=== PATIENT | male | born 1995 | race Two or more races ===

== ENCOUNTER 2016-08-18 16:29 | Emergency (ER) | payer OTHER ==
[2016-08-18 16:35] VITALS: PULSE 79; TEMP 98.1; O2SAT 97
--- NOTE | 2016-08-18 16:45 | EDPHY ---
H & P Stated Complaint: "I have a cold" Sore throat since yesterday;no cough or fever - Personal History Current Tetanus Diphtheria and Acellular Pertussis (TDAP): Unsure - Medical/Surgical History Other PMH: healthy - Social History Smoking Status: Never smoked Time Seen by Provider: 08/18/16 16:40 HPI/ROS: CHIEF COMPLAINT: " IHave a cold" HISTORY OF PRESENT ILLNESS: 20-year-old immunocompetent male complaining of 2 days of nonproductive cough, sore throat, rhinorrhea "I have a cold". Denies: Chest pain, dyspnea, change in voice, rash, abdominal pain, nausea, vomiting PRIMARY CARE PROVIDER:[facility] REVIEW OF SYSTEMS: A ten point review of systems was performed and is negative with the exception of the items mentioned in the HPI PAST MEDICAL & SURGICAL HISTORY: No pertinent medical or surgical history SOCIAL HISTORY: Positive smoker . Student PHYSICAL EXAM (Prior to examination, patient consented to physical exam, hands were washed and my usual and customary physical exam procedures followed) 1) GENERAL: Well-developed, well-nourished, alert and oriented. Appears to be in no acute distress. 2) HEAD: Normocephalic, atraumatic 3) HEENT: Pupils equal, round, reactive to light bilaterally. Sclera anicteric. Nasopharynx, oropharynx, clear, no lesions. No tonsillar enlargement or tonsillar exudate. No trismus no drooling. Ears bilaterally with normal tympanic membranes. 4) NECK: Full range of motion, no meningeal signs. No adenopathy 5) LUNGS: Clear auscultation bilaterally, no wheezes, no rhonchi, no retractions. 6) HEART: Regular rate and rhythm, no murmur, no heave, no gallop. 7) ABDOMEN: No guarding, no rebound, no focal tenderness,, 8) MUSCULOSKELETAL: No peripheral edema or discoloration. 9) BACK: No CVA tenderness. 10) SKIN: No rash, no petechiae. 11) Psychiatric: Patient is oriented X 3, there is no agitation. DIFFERENTIAL DIAGNOSIS: in no particular include but limited to pneumonia, meningitis, bronchitis, viral URI (Niecy,Ekta Hayley) Constitutional: Initial Vital Signs Temperature (C) 36.7 C 08/18/16 16:33 Heart Rate 79 08/18/16 16:33 Respiratory Rate 16 08/18/16 16:33 Blood Pressure 116/64 08/18/16 16:33 O2 Sat (%) 97 08/18/16 16:33 O2 Delivery Mode Room Air Allergies/Adverse Reactions: No Known Allergies Allergy (Unverified 08/18/16 16:33) Home Medications: Medication Instructions Recorded Albuterol [Proventil Inhaler HFA 1 - 2 puffs IH Q4PRN PRN #1 mdi 08/18/16 (*)] Benzonatate [Tessalon Pearles (RX)] 200 mg PO TID PRN #15 cap 08/18/16 Medical Decision Making ED Course/Re-evaluation: I think the patient's symptoms are more than likely secondary to viral etiology. For these reasons, I do not feel antibiotics are currently indicated. In addition, I do not identify indication for chest x-ray as the patient's lungs are clear bilaterally, has a normal pulse ox, speaking full sentences, no signs of respiratory distress. We discussed supportive therapy. The patient understands that this diagnosis is provisional and can never be 100 % accurate. Usual and customary warnings were given concerning the clinical impression and all the patient's questions were answered. The patient was instructed to return to the emergency department should her symptoms worsen or return, or develop any new symptoms, otherwise to followup as directed in discharge instructions. (Ekta Pemberton) I did not see this patient while he was in the emergency department. However his care was discussed with the PA while the patient was in the department. I agree with treatment plan and management (Kolby Olivares) Departure - Departure Disposition: Home, Routine, Self-Care Clinical Impression: Upper respiratory infection Condition: Good Instructions: Upper Respiratory Infection (ED) Additional Instructions: You were examined in the emergency department today for upper respiratory infection (URI) like symptoms. While more URIs are caused by viral illnesses, we cannot always exclude the possibility of a bacterial infection that may require treatment with antibiotics. Please be re-examined by a medical professional within 24 hours. Return to the emergency department immediately for change in breathing habits, change in voice, change in swallowing habits, change in mental status, or any other symptoms that concern you. Referrals: [facility] [Clinic] - 5-7 days, call for appt. Stand Alone Forms: School Excuse Prescriptions: Albuterol [Proventil Inhaler HFA (*)] 1 - 2 puffs IH Q4PRN PRN #1 mdi PRN Reason: Cough, Moderate Benzonatate [Tessalon Pearles (RX)] 200 mg PO TID PRN #15 cap PRN Reason: Cough, Moderate
[2016-08-18 16:57] VITALS: BP 108/70; RESP 20
== END 2016-08-18 16:57 | disposition home or self-care (01) ==
DX: J06.9 Acute upper respiratory infection, unspecified (principal)

== ENCOUNTER 2017-06-26 16:11 | Emergency (ER) | payer OTHER ==
[2017-06-26 16:16] VITALS: BP 130/76; PULSE 78; RESP 16; TEMP 98.6; O2SAT 97
--- NOTE | 2017-06-26 16:36 | EDPHY ---
H & P Stated Complaint: Sore throat x 7 days;no trouble swallowing, no fever or chills Time Seen by Provider: 06/26/17 16:16 HPI/ROS: CHIEF COMPLAINT: Sore throat x1 week HISTORY OF PRESENT ILLNESS: 21-year-old immunocompetent male complaining of 1 week of sore throat which started the day after he performed cunnilingus on a female. He is in the ER as he is concerned that he may have obtained an STD in his oropharynx. He has already had serum testing for HIV, hepatitis as he was concerned about STD exposure. He has had no urinary complaints such as dysuria hematuria or urethral discharge.. No change in voice. No cough. No fever or chills. No nuchal rigidity. No adenopathy. PRIMARY CARE PROVIDER: REVIEW OF SYSTEMS: A ten point review of systems was performed and is negative with the exception of the items mentioned in the HPI PAST MEDICAL & SURGICAL HISTORY: No pertinent medical or surgical history SOCIAL HISTORY: Nonsmoker, [employer] student PHYSICAL EXAM (Prior to examination, patient consented to physical exam, hands were washed and my usual and customary physical exam procedures followed) 1) GENERAL: Well-developed, well-nourished, alert and oriented. Appears to be in no acute distress. Appears comfortable. 2) HEAD: Normocephalic, atraumatic 3) HEENT: Pupils equal, round, reactive to light bilaterally. Sclera anicteric. Nasopharynx, oropharynx, clear, no lesions. No tonsillar enlargement or exudate. No trismus no drooling. No hot potato voice. Ears bilaterally with normal tympanic membranes. 4) NECK: Full range of motion, no meningeal signs. No adenopathy 5) LUNGS: Clear auscultation bilaterally, no wheezes, no rhonchi, no retractions. 6) HEART: Regular rate and rhythm, no murmur, no heave, no gallop. 7) ABDOMEN: No guarding, no rebound, no focal tenderness, negative McBurney's, negative Mack's, negative Rovsing's, negative peritoneal sign, 8) MUSCULOSKELETAL: Moving all extremities, no focal areas of tenderness, no obvious trauma. No peripheral edema or discoloration. 9) BACK: No CVA tenderness, no midline vertebral tenderness, no fluctuance, no step-off, no obvious trauma, no visual or palpable abnormality. 10) SKIN: No rash, no petechiae. 11) Psychiatric: Patient is oriented X 3, there is no agitation. DIFFERENTIAL DIAGNOSIS: In no particular include but limited to peritonsillar abscess, retropharyngeal abscess, strep pharyngitis, viral pharyngitis, oropharyngeal GC or Chlamydia - Personal History Current Tetanus Diphtheria and Acellular Pertussis (TDAP): Unsure - Medical/Surgical History Other PMH: healthy - Social History Smoking Status: Current every day smoker Constitutional: Initial Vital Signs Temperature (C) 37 C 06/26/17 16:13 Heart Rate 78 06/26/17 16:13 Respiratory Rate 16 06/26/17 16:13 Blood Pressure 130/76 H 06/26/17 16:13 O2 Sat (%) 97 06/26/17 16:13 O2 Delivery Mode Room Air Allergies/Adverse Reactions: No Known Allergies Allergy (Verified 06/26/17 16:12) Home Medications: Medication Instructions Recorded NK [No Known Home Meds] 06/26/17 Medical Decision Making ED Course/Re-evaluation: 443 p.m.: This patient has been evaluated by myself. The patient expresses concerns about possible oropharyngeal GC or Chlamydia after cunnilingus on a female 1 week ago. We discussed the usual incubation time for GC and/or chlamydia, he is concerned would like to be tested for this. Swabs have been obtained and are pending. At this time I will hold on empiric treatment for GC or Chlamydia as he has no visible abnormality on exam. Usual customary oropharyngeal precautions provided. No evidence of deep space infection or peritonsillar abscess. Care of patient under supervision of secondary supervising physician Dr Charles . - Data Points Laboratory Results: 06/26/17 16:30 C.trachomatis RNA (TMA) Pending N.gonorrhoeae RNA (TMA) Pending Departure - Departure Disposition: Home, Routine, Self-Care Clinical Impression: Sore throat Condition: Good Instructions: Pharyngitis (ED) Additional Instructions: Return to the ER immediately if you cannot swallow, have drooling, fevers, neck stiffness, cannot open your jaw, or any other symptoms that concern you. Referrals: Kolby Huerta MD [Medical Doctor] - 1-2 days without fail
[2017-06-27 13:09] LABS: GC AMPLIFICATION GENPROBE NEGATIVE (NEGATIVE)
== END 2017-06-26 16:55 | disposition home or self-care (01) ==
DX: J02.9 Acute pharyngitis, unspecified (principal); F17.200 Nicotine dependence, unspecified, uncomplicated